=== PATIENT | female | born 1975 | race Hispanic/Latino ===

== ENCOUNTER 2020-01-30 05:12 | Emergency (ER) | payer BC, SELFPAY ==
--- NOTE | 2020-01-30 05:15 | ED.NAVMDI ---
HPI - Nausea/Vomiting/Diarrhea General Chief complaint: Nausea/Vomiting/Diarrhea Stated complaint: Vomiting since 9PM yesterday Time Seen by Provider: 01/30/20 05:15 Source: patient and family Mode of arrival: Ambulatory Limitations: no limitations History of Present Illness HPI Narrative: 44-year-old female nonsmoker with noncontributory medical history presents with a family friend in the chief complaint of multiple episodes of nausea and vomiting since about 9:00 p.m. last night. She states she was in her normal state of health until she had a large amount of alcohol on an empty stomach and started feeling poorly. Since then she has vomited multiple times and has a burning sensation in her stomach. She denies any blood in the vomit. She is not a daily drinker. She denies any significant abdominal pain but does have some cramping now. Her last menstrual cycle was a few days ago and normal. She denies any chance of being . She denies any illicit drugs or other substances. MD complaint: nausea and vomiting Onset (ago): hour(s) Description of Vomiting: food contents Description of Diarrhea: none Associated Abdominal Pain: Yes Location of pain: diffuse Severity: mild Quality: cramping Pain Consistency: intermittent Relieving factors: none Exacerbating factors: none Context: alcohol abuse Associated symptoms: denies other symptoms Related Data Previous Rx's Medication Instructions Recorded ondansetron 4 mg disintegrating 4 mg PO TID-QID PRN nausea and 01/30/20 tablet vomiting #10 tabs Allergies Allergy/AdvReac Type Severity Reaction Status Date / Time No Known Drug Allergies Allergy Verified 01/30/20 05:52 Review of Systems Constitutional Constitutional: Denies chills, Denies fatigue, Denies fever(s), Denies frequent falls, Denies lethargy and Denies weakness Eyes Eyes: Denies change in vision, Denies eye discharge, Denies irritation and Denies loss of vision ENT Ears, Nose, Mouth, and Throat: Denies change in voice, Denies dizziness, Denies neck pain, Denies sore throat and Denies throat swelling Cardiovascular Cardiovascular: Denies chest pain, Denies irregular heart rhythm, Denies lightheadedness, Denies palpitations, Denies dyspnea, Denies dyspnea on exertion and Denies orthopnea Respiratory Respiratory: Denies cough, Denies dyspnea, Denies dyspnea on exertion and Denies wheezing Gastrointestinal Gastrointestinal: Reports abdominal pain, Denies change in bowel habits, Denies diarrhea, Reports nausea and Reports vomiting Musculoskeletal Musculoskeletal: Denies neck pain and Denies numbness Integumentary/Breasts Skin/Breast: Denies pruritus, Denies erythema, Denies rash and Denies wounds Neurologic Neurologic: Denies behavioral changes, Denies confusion, Denies dizziness, Denies frequent falls, Denies loss of vision, Denies numbness and Denies weakness Psychiatric Psychiatric: Denies anxiety, Denies behavioral changes, Denies confusion, Denies depression, Denies homicidal ideation and Denies suicidal ideation Endocrine Endocrine: Denies fatigue, Denies flushing and Denies palpitations Hematologic/Lymphatic Hematologic/Lymphatic: Denies easy bruising Allergic/Immunologic Allergic/Immunologic: Denies urticaria, Denies throat swelling and Denies wheezing Patient History Social History Smoking Status: Never smoker Smoking Status: Never smoker alcohol intake frequency: 0-2 drinks per day Alcohol type: hard liquor Substance Use Type: does not use Exam Narrative Exam Narrative: GENERAL: [44] year old patient appears stated age. Well-nourished, well-developed patient, in mild distress. Holding an emesis bag, clearly uncomfortable HEAD: Atraumatic. Normocephalic. EYES: Pupils equal round and reactive. Extraocular motions intact. No scleral icterus. No injection or drainage. ENT: Nose without bleeding, purulent drainage. Throat without erythema, tonsillar hypertrophy or exudate. Airway patent. NECK: Trachea midline. Non tender CARDIOVASCULAR: Regular rate and rhythm without murmurs, gallops, or rubs. RESPIRATORY: Clear to auscultation. Breath sounds equal bilaterally. No wheezes, rales, or rhonchi. GASTROINTESTINAL: Abdomen soft, non-tender, nondistended. EXTREMITIES: No edema or joint tenderness. BACK: Nontender without deformity or crepitance. No flank tenderness. NEURO: AOx3. SKIN: No rash or erythema of visible areas Initial Vital Signs Initial Vital Signs: Vital Signs Temperature 98.2 F 01/30/20 05:32 Pulse Rate 94 H 01/30/20 05:32 Respiratory Rate 18 01/30/20 05:32 Blood Pressure 118/64 01/30/20 05:32 Pulse Oximetry 100 01/30/20 05:32 Oxygen Delivery Method 01/30/20 05:32 Course Orders Ordered: Discontinued Medications Sodium Chloride (Normal Saline 0.9%) 1,000 mls @ 1,000 mls/hr IV BOLUS ONE Stop: 01/30/20 06:19 Last Infusion: 01/30/20 06:22 Dose: 0 mls/hr Documented By: Admin: 01/30/20 05:28 Dose: 1,000 mls/hr Documented By: SAAD Sodium Chloride (Normal Saline 0.9%) 1,000 mls @ 1,000 mls/hr IV BOLUS ONE Stop: 01/30/20 07:03 Last Infusion: 01/30/20 07:17 Dose: 0 mls/hr Documented By: Admin: 01/30/20 06:22 Dose: 1,000 mls/hr Documented By: SAAD Ondansetron HCl (Ondansetron 4 Mg/2 Ml Inj) 4 mg IV Q4HR PRN PRN Reason: Nausea And Vomiting Last Admin: 01/30/20 05:28 Dose: 4 mg Documented By: SAAD Ondansetron HCl (Ondansetron 4 Mg Odt Prepack) 1 bottle MISC SEEINSTR ONE Stop: 01/30/20 05:28 Last Admin: 01/30/20 07:17 Dose: 1 bottle Documented By: SAAD Pantoprazole Sodium (Pantoprazole 40 Mg Vial) 40 mg IV NOW ONE Stop: 01/30/20 05:21 Last Admin: 01/30/20 05:28 Dose: 40 mg Documented By: SAAD Reevaluation(s) Reevaluation #1: patient experiencing tremendous relief after the above stated therapies. Vital Signs Vital signs: Vital Signs - 8 hr 01/30/20 05:32 01/30/20 05:37 01/30/20 06:00 Temperature 98.2 F Pulse Rate 94 H 92 H 88 Respiratory Rate 18 Blood Pressure 118/64 115/58 L Pulse Oximetry 100 99 100 01/30/20 06:30 Temperature Pulse Rate 80 Respiratory Rate Blood Pressure 115/66 Pulse Oximetry 100 MDM - Nausea/Vomiting/Diarrhea Lab Data 01/30/20 05:25 01/30/20 05:25 Labs: Lab Results 01/30/20 01/30/20 Range/Units 05:25 05:25 WBC 3.6 L (4.5-11.0) X10^3/uL RBC 4.47 (4.0-5.2) X10^6/uL Hgb 13.9 (12.0-16.0) g/dL Hct 41.7 (36-46) % MCV 93.4 (80-100) fL MCH 31.0 (26-34) PG MCHC 33.2 (30-36) % RDW 13.5 (11.6-14.8) % Plt Count 234 (150-400) X10^3/uL Neut % (Auto) 64.4 (50-75) % Lymph % (Auto) 16.2 L (25-40) % Mcculloch % (Auto) 15.8 H (3-14) % Eos % (Auto) 2.3 (2-4) % Baso % (Auto) 1.3 (0-2) % Neut # (Auto) 2300 (6655-4918) /uL Lymph # (Auto) 600 L (3299-1373) /uL M[place]ulloch # (Auto) 600 (0-900) /uL Eos # (Auto) 100 (0-450) /uL Baso # (Auto) 0 (0-100) /uL Sodium 138 (137-145) mmol/L Potassium 4.3 (3.4-5.1) mmol/L Chloride 104 (98-107) mmol/L Carbon Dioxide 29 (22-32) mmol/L BUN 7 (7-17) mg/dL Creatinine 0.54 (0.52-1.04) mg/dL Estimated GFR > 60.0 (>60) mL/min BUN/Creatinine Ratio 13.0 (6-22) Glucose 109 H (70-100) mg/dL Calcium 10.3 H (8.4-10.2) mg/dL Discharge Plan Departure Patient Disposition: Home Clinical Impression: Vomiting Instructions: DI for Vomiting -- Adult Activity Restrictions/Additional Instructions: 1. Drink plenty of fluids with frequent small sips. 2. For the next 24 hours a clear liquid diet is advised. After that please employ a B.R.A.T. diet which would include bananas, rice, apples, toast and other mild food items 3. Please take medications as directed. 4. Please follow-up with your doctor in the next 1-2 days. Call the office for an appointment. 5. Please return to the emergency Department for any worsening or persistent symptoms, such as increasing pain or fever. Prescriptions: New ondansetron 4 mg tablet,disintegrating 4 mg PO TID-QID PRN (Reason: nausea and vomiting) Qty: 10 0RF
[2020-01-30] MEDS: ONDANSETRON 4 MG/2 ML INJ IV (05:28)
[2020-01-30] MEDS: PANTOPRAZOLE 40 MG VIAL IV (05:28)
[2020-01-30] MEDS: SODIUM CHLORIDE 0.9% 1,000 ML 1000 ML IV ×2 (05:28→06:22)
[2020-01-30 05:32] VITALS: BP 118/64; PULSE 94; RESP 18; TEMP 36.8; O2SAT 100; BMI 25.6
[2020-01-30 05:37] VITALS: PULSE 92; O2SAT 99
[2020-01-30 05:39] LABS: Add Manual Diff / Slide Review NO; Basophils Absolute Auto 0 /uL (0-100); Basophils Percent Auto 1.3 % (0-2); Eosinophils Absolute Auto 100 /uL (0-450); Eosinophils Percent Auto 2.3 % (2-4); Hematocrit 41.7 % (36-46); Hemoglobin 13.9 g/dL (12.0-16.0); Lymphocytes Absolute Auto 600 /uL (1100-4500); Lymphocytes Percent Auto 16.2 % (25-40); Mean Corpuscular HGB Conc 33.2 % (30-36); Mean Corpuscular Volume 93.4 fL (80-100); Monocytes Absolute Auto 600 /uL (0-900); Monocytes Percent Auto 15.8 % (3-14); Neutrophils Absolute Auto 2300 /uL (1500-7000); Neutrophils Percent Auto 64.4 % (50-75); Platelet Count 234 X10^3/uL (150-400); Red Blood Cell Count 4.47 X10^6/uL (4.0-5.2); Red Cell Distribution Width 13.5 % (11.6-14.8); White Blood Cell Count 3.6 X10^3/uL (4.5-11.0)
[2020-01-30 05:47] LABS: Blood Urea Nitrogen 7 mg/dL (7-17); Calcium 10.3 mg/dL (8.4-10.2); Carbon Dioxide 29 mmol/L (22-32); Chloride 104 mmol/L (98-107); Estimated Glomerular Filt Rate > 60.0 mL/min (>60); Glucose 109 mg/dL (70-100); HEMOLYSIS < 15 (0-50); Potassium 4.3 mmol/L (3.4-5.1); Sodium 138 mmol/L (137-145)
[2020-01-30 06:00] VITALS: BP 115/58; PULSE 88; O2SAT 100
[2020-01-30 06:30] VITALS: BP 115/66; PULSE 80; O2SAT 100
[2020-01-30 07:00] VITALS: BP 111/70; PULSE 84; O2SAT 99
[2020-01-30] MEDS: ONDANSETRON 4 MG ODT PREPACK 1 BOTTLE MISC (07:17)
== END 2020-01-30 07:18 | disposition home or self-care (01) ==
PROVIDERS: Emergency Provider Emergency Medicine
DX: F10.10 Alcohol abuse, uncomplicated (principal); R11.2 Nausea with vomiting, unspecified; R10.9 Unspecified abdominal pain
CPT/HCPCS: 36415; 80048; 85025; 96361; 96374; 96375; 99284; C9113; J2405